=== PATIENT | male | born 1975 | race Caucasian/White ===

== ENCOUNTER 2025-01-26 00:58 | Day surgery (SDC) | payer BC, SELFPAY ==
[2025-01-15 15:08] VITALS: BMI 38.5
[2025-01-26 09:30] VITALS: BP 135/69; PULSE 82; RESP 18; TEMP 36.3; O2SAT 98; BMI 38.9
[2025-01-26] MEDS: LACTATED RINGERS 1,000 ML 150 ML IV CONT (09:55)
--- NOTE | 2025-01-26 10:30 | P.PNAN_ITS ---
Anes - Initial Pre Proc Eval Procedure: Operation Date: 01/26/25 11:00 Proposed Procedures p Screening Colonoscopy - Giancarlo Tucker MD Date/Time: 01/26/25 10:30 Surgeon: Giancarlo Tucker MD Pre Op Diagnosis: Encounter for screening for malignant neoplasm of Patient Data Age: 49 Gender: M Height: 1.75 m Weight: 119.7 kg Last Vital Signs Temp 36.3 C L 01/26/25 09:30 Pulse 82 01/26/25 09:30 Resp 18 01/26/25 09:30 BP 135/69 01/26/25 09:30 Pulse Ox 98 01/26/25 09:30 O2 Del Method Room Air 01/26/25 09:30 Allergies Allergy/AdvReac Type Severity Reaction Status Date / Time Penicillins AdvReac Mild Diarrhea Verified 01/26/25 09:37 Home Medications ?Medication ?Instructions ?Recorded ?Confirmed ?Type lisinopril 20 mg tablet 20 mg PO DAILY #90 tabs 050 12/1401/26/25 Rx metformin 500 mg tablet,extended 500 mg PO DAILY #90 t abs 07/28/24 01/26/25 Rx release 24 hr Laboratory Tests 01/26/25 09:44 POC Capillary Glucose 125 H mg/dl (65-105) Patient hx anesthesia problems: none Family hx anesthesia problems: none Results Review: All pre-operative results and documents have been reviewed as part of the pre- operative evaluation. [facility] Past Medical History Medical History (Updated 01/25/25 @ 16:04 by Salas Veronica DO) SOCRATES (obstructive sleep apnea) Diabetes mellitus type II, controlled HTN (hypertension) Surgical History Surgical History H/O vasectomy History of placement of ear tubes Hx of tonsillectomy History of back surgery Shaving of a disc due to bulging, 2019 Family History Family History Father No problems noted. Mother No problems noted. Son No problems noted. Daughter No problems noted. Grandparent Hypertension Heart disease Diabetes mellitus Cerebrovascular accident Social History Social History Smoking status: Never smoker Second hand tobacco smoke exposure: No Alcohol intake: current Drinks per week: 1 Alcohol use details: occ Substance use: never Substance use type: does not use Lack of Transportation: No Lack of Food: Never True Current Housing: I Have Housing Concerned About Future Housing: No Difficulty Paying Gas/Electric Bills: No Difficulty Paying for Meds: No Currently Unemployed: No Difficulty w/ Childcare or Family Care: No Living arrangements: with family Occupation/Education: occupation Gender identity (if verbalized by the patient): Male Sexual Orientation (if Verbalized by the Patient): Straight or Heterosexual Spiritual care concerns: No Anes - Eval Final PreProcedure Day of Procedure 01/26/25 10:30 Patient weight: obese Heart: regular rate and rhythm Lungs: clear to auscultation Airway: Mallampati scale class II Neurological: alert and oriented Last oral intake: >/= 8 hours ASA classification: III Emergent: no Anesthetic plan: proceed Anesthesia type and monitoring: general GIVS and standard monitoring Results Review: All pre-operative results and documents have been reviewed as part of the pre- operative evaluation. Informed Consent: The patient's anesthetic plan and its attendant risks and benefits were discussed with the patient/family/POA. Questions were solicited and answers provided to the satisfaction of the patient/family/POA.
--- NOTE | 2025-01-26 10:33 | PM.HPGS ---
History of Present Illness History of Present Illness Consent: Risks, benefits, and alternatives have been discussed and questions answered. Patient agrees to proceed with procedure. Chief complaint: Encounter for screening for malignant neoplasm of Narrative: Kvng King is a 49 year old male here for first screening colonoscopy Review of Systems Review of Systems: All systems reviewed & are unremarkable except as noted in HPI and below PMFSH Past Medical History Medical History (Updated 01/26/25 @ 10:43 by Giancarlo Tucker MD) Colon cancer screening SOCRATES (obstructive sleep apnea) Diabetes mellitus type II, controlled HTN (hypertension) Surgical History Surgical History H/O vasectomy History of placement of ear tubes Hx of tonsillectomy History of back surgery Shaving of a disc due to bulging, 2014, 2019 Family History Family History Father No problems noted. Mother No problems noted. Son No problems noted. Daughter No problems noted. Grandparent Hypertension Heart disease Diabetes mellitus Cerebrovascular accident Social History Social History Smoking status: Never smoker Second hand tobacco smoke exposure: No Alcohol intake: current Drinks per week: 1 Alcohol use details: occ Substance use: never Substance use type: does not use Lack of Transportation: No Lack of Food: Never True Current Housing: I Have Housing Concerned About Future Housing: No Difficulty Paying Gas/Electric Bills: No Difficulty Paying for Meds: No Currently Unemployed: No Difficulty w/ Childcare or Family Care: No Living arrangements: with family Occupation/Education: occupation Gender identity (if verbalized by the patient): Male Sexual Orientation (if Verbalized by the Patient): Straight or Heterosexual Spiritual care concerns: No Meds Home Medications and Allergies Home Medications ?Medication ?Instructions ?Recorded ?Confirmed ?Type lisinopril 20 mg tablet 20 mg PO DAILY #90 tabs 07/28/24 01/26/25 Rx metformin 500 mg tablet,extended 500 mg PO DAILY #90 tabs 07/28/24 01/26/25 Rx release 24 hr Allergies Allergy/AdvReac Type Severity Reaction Status Date / Time Penicillins AdvReac Mild Diarrhea Verified 01/26/25 09:37 Vital Signs Vital Signs - 24 hr 11/07/25 09:30 Temperature 97.4 F L Pulse Rate 82 Respiratory Rate 18 Blood Pressure 135/69 Pulse Oximetry 98 Oxygen Delivery Room Air Exam Const: General: comfortable and no acute distress HENMT: Face/Nose/Sinus: Normal nares present Eyes: General: appearance normal, both eyes and all related structures Neck: Neck: no JVD Resp: Auscultation: clear to auscultation bilaterally Cardio: Rate: regular rate Rhythm: regular rhythm GI: Inspection: non-distended GI Palp: Yes Soft to palpation Skin: General skin exam: normal color Extrem: General: normal to inspection Psych: Mental Status: mental status grossly normal Assessment and Plan Assessment and plan (1) Colon cancer screening: Code(s): Z12.11 - Encounter for screening for malignant neoplasm of colon Status: Acute Assessment and Plan: colonoscopy
[2025-01-26 10:44] VITALS: BP 116/78; PULSE 89; RESP 19; O2SAT 97
[2025-01-26 10:54] VITALS: BP 129/86; PULSE 85; RESP 19; O2SAT 99
[2025-01-26 10:58] VITALS: BP 124/60; PULSE 78; RESP 18; O2SAT 99
== END 2025-01-26 11:14 | disposition home or self-care (01) ==
PROVIDERS: Visit Provider Internal Medicine Gastroenterology
PROC: 0DJD8ZZ Inspection of Lower Intestinal Tract, Via Natural or Artificial Opening Endoscopic (ICD-10-PCS; CPT 45378; principal; 2025-01-26 11:00)
DX: Z12.11 Encounter for screening for malignant neoplasm of colon (principal); I10 Essential (primary) hypertension; E11.9 Type 2 diabetes mellitus without complications; G47.33 Obstructive sleep apnea (adult) (pediatric); E66.9 Obesity, unspecified; Z68.39 Body mass index [BMI] 39.0-39.9, adult; Z79.84 Long term (current) use of oral hypoglycemic drugs; Z98.890 Other specified postprocedural states; Z98.1 Arthrodesis status; Z82.49 Family history of ischemic heart disease and other diseases of the circulatory system
CPT/HCPCS: 45378; 82948; J2704; J7120